=== PATIENT | female | born 1995 | race Two or more races ===

== ENCOUNTER 2020-07-02 15:04 | Outpatient (AMBR) | payer MEDICAID, SELFPAY ==
--- NOTE | 2020-07-02 15:15 | PT.OIERPT ---
PT OP Initial Eval Patient Information Visit Reasons: pain in right leg Medical Diagnosis: M79.604 Treatment Dx #1: R knee pain Start of Care: 07/02/20 Date of Onset: 2 months ago Initial Assessment Subjective Pt is 25 yr old slovak speaking female who reports onset of R knee pain x2 months. At first, the pain would come and go and then it is constant as of last month. She reports increased pain with prolonged walking, swimming, squatting, kneeling and knee pain is 6/10 now. At night the pain is worse and she can't sleep. PMH: none reported Imaging: with provider, kneecap displaced Pt goal: to get rid of the pain. Objective R knee AROM: Flexion: 80 deg Extension: -10 deg PROM: 85 deg flexion SLR: 55 deg with slight extensor lag Strength: R quads 4-/5 limited by patella compression pain, hamstrings 4/5 TTP: moderate of sciatic pathway on R from glutes to gastrocs Knee varus/valgus: significant gapping varus>valgus Assessment Pt presents with significant medial lateral gapping of R knee consistent with instability and possibly meniscus pain as it hurts on the back and she is unable to fully extend knee. She has pain with trunk extension that refers from L/S down posterior thigh consistent with radiculopathy. Pt requires skilled therapy in order to decrease pain and improve strength/stability. Short Term and Prison Goals 1. Independent with HEP 2. Improved knee extension to full 3. Improved quad and hamstring strength to 4+/5 4. Improved ambulatory tolerance to community distances with symmetrical gait pattern. Treatment Plan 1. Manual therapy 2. Therex 3. Modalities as indicated, moist heat, ice, TENS Frequency and Duration 2x a week for 6 weeks Certification Dates: 07/02/20 to 10/02/20 Office Procedures PT Procedures PT Date of Service: 07/02/20 OP PT Eval Mod Complex 30 minutes: Yes
== END 2020-07-09 23:59 | disposition home or self-care (01) ==
PROVIDERS: PCP Physician Assistant Medical; Referring Provider Physician Assistant Medical; Visit Provider Physician Assistant Medical
DX: M25.561 Pain in right knee (principal)
CPT/HCPCS: 97162

== ENCOUNTER 2020-07-30 16:53 | Outpatient (AMBR) | payer MEDICAID, SELFPAY ==
--- NOTE | 2020-07-15 18:37 | PT.ODAYNRPT ---
PT Outpatient Daily Note Date of Service: 07/15/20 OP Daily Note Visit Reasons: pain in right leg Outpatient Physical Therapy Treatment Date: 07/15/20 Subjective: Same as time of evaluation Objective: See F./S for therex MT: Mara tape R knee derotation tape x7' MHP R knee x5' Assessment: Good therex tolerance with moderate tissue irritability today. Plan: Continue per POC Length of Time (minutes) of Treatment: 30 Minutes Office Procedures PT Procedures PT Date of Service: 07/15/20 MCL Initial 30 minutes: Yes
--- NOTE | 2020-07-17 18:34 | PTNOTE_ITS ---
PT Outpatient Daily Note Date of Service: 07/17/20 OP Daily Note Visit Reasons: pain in right leg Outpatient Physical Therapy Treatment Date: 07/17/20 Subjective: The tape helped the knee feel more secure while it was on. Pain is in the back of the knee and over the kneecap. Objective: See F/S for therex MT: StM anterior knee x7' patella borders MHP R knee x5' Assessment: Pt has flat feel and collapsing arches which may be contributing to R knee pain. PT recommends arch support insoles and pt was given examples of wh at to buy. Plan: Continue per POc Length of Time (minutes) of Treatment: 30 Minutes Office Procedures PT Procedures PT Date of Service: 07/15/20 MCL Initial 30 minutes: Yes PT Procedures PT Date of Service: 07/17/20 MCL Initial 30 minutes: Yes
--- NOTE | 2020-07-23 17:13 | PT.ODAYNRPT ---
PT Outpatient Daily Note Date of Service: 07/23/20 OP Daily Note Visit Reasons: pain in right leg Outpatient Physical Therapy Treatment Date: 07/23/20 Subjective: Therapy is helping reduce LE pain. She bought arch support insoles and is waiting to receive them. Objective: See F/S for therex MT: StM anterior and medial knee x7' MHP R knee x5' Assessment: Pt has flat feet and collapsing arches which may be contributing to R knee pain. She performs therex slowly but doesn't c/o pain. Plan: Continue per POC Length of Time (minutes) of Treatment: 30 Minutes Office Procedures PT Procedures PT Date of Service: 07/15/20 MCL Initial 30 minutes: Yes PT Procedures PT Date of Service: 07/17/20 MCL Initial 30 minutes: Yes PT Procedures PT Date of Service: 07/23/20 MCL Initial 30 minutes: Yes
--- NOTE | 2020-07-30 17:56 | PT.ODAYNRPT ---
PT Outpatient Daily Note Date of Service: 07/30/20 OP Daily Note Visit Reasons: pain in right leg Outpatient Physical Therapy Treatment Date: 07/30/20 Subjective: Pt c/o pain down the R LE backside to the heel. The arch supports have helped the knee but not the LE pain that feels like nerve pain. Objective: Trunk Extension: provokes pain down LE from PSIS SL ilium pressure: pain R SLR: positive Assessment: Pt has trunk extension sensitivity and pain over R PSIS consistent with SI joint dysfunction and pain radiating down R LE posteriorly. She has difficulty with full knee extension possibly due to neural tension in the LE. PT believes these to be two seperate issues and that the knee pain is from the flat feet and excessive varus gapping. Plan: Decrease R LE pain Length of Time (minutes) of Treatment: 30 Minutes Office Procedures PT Procedures PT Date of Service: 07/15/20 MCL Initial 30 minutes: Yes PT Procedures PT Date of Service: 07/17/20 MCL Initial 30 minutes: Yes PT Procedures PT Date of Service: 07/23/20 MCL Initial 30 minutes: Yes PT Procedures PT Date of Service: 07/30/20 MCL Initial 30 minutes: Yes
== END 2020-08-08 23:59 | disposition home or self-care (01) ==
PROVIDERS: PCP Physician Assistant Medical; Referring Provider Physician Assistant Medical; Visit Provider Physician Assistant Medical
DX: M79.604 Pain in right leg (principal)

== ENCOUNTER → 2024-12-17 | Outpatient (CLI) | payer MEDICAID, SELFPAY ==
--- NOTE | 2024-12-17 15:30 | XR_ITS ---
Examination: Breast ultrasound, unilateral, right Date and time of exam: December 17, 2024 1538 hours INDICATIONS: breast-feeding, abscess in the 1 to 3:00 position right breast on ultrasound August 2024 Technique: Real-time pinto scale ultrasonographic imaging performed right breast including all 4 quadrants as well as nipple retroareolar and axillary region. Findings: No current cystic or solid mass IMPRESSION: No current cystic or solid mass
== END | disposition home or self-care (01) ==
LOC: CDIM 15:09
DX: N61.1 Abscess of the breast and nipple (principal)
CPT/HCPCS: 76641